=== PATIENT | female | born 1960 | race Caucasian/White ===

== ENCOUNTER 2025-02-10 09:35 | Outpatient (AMB) | payer BC, SELFPAY ==
--- NOTE | 2025-02-10 10:03 | GYNCLNT_ITS ---
Vital Signs 02/10/25 10:04 Height 1.75 m Height Method Stated Weight 87.146 kg Weight Measurement Method Standing Scale BMI 28.3 BP 128/71 Blood Pressure Source Automatic Cuff Blood Pressure Location Left Upper Arm Position Sitting Respiration 18 Pulse 75 Pulse Source Monitor Temp 97.2 F Temp Source Oral Pulse Oximetry (%) 96 Oxygen Delivery Method Room Air Allergies/Home Meds Allergies & Medications Allergies No Known Allergies Allergy (Verified 02/10/25 10:06) Medication Reconciliation semaglutide 1 mg/dose (2 mg/1.5 mL) subcutaneous pen injector 2 mg subcut QWEEK 02/11/25 [History] sertraline 50 mg tablet (Zoloft) 50 mg PO QDAY 02/11/25 [History] Intake Visit Data Collection New Patient or Established: New Patient (never been to [facility]) Reason for Visit:: ANNUAL EXAM Seen by Clinical Staff ONLY (RN/MA): No Do You Feel Safe at Home: Yes Authorities Contacted: N/A PCP or OBGYN visit in last 3 months: Yes Hx Now: No Are you currently on any form of Control: No Pain Present Currently: No Pain Scale Used: Alfaro-Lutz/Numerical Pain scale:: 0 Smoking Status Smoking Status: Never smoker 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 History Menstrual regularity: irregular Monthly: No Age at menarche: 14 Menopausal: Yes If menopausal, at what age did it occur: 51 Currently sexually active: No If not currently sexually active, have you ever been sexually active: Yes Additional comments: 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 1. Little interest or pleasure in doing things: not at all 2. Feeling down, depressed, or hopeless: not at all Total score: 0 PHQ-9 3. Trouble falling or staying asleep, or sleeping too much: Not at all 4. Feeling tired or having little energy: Not at all 5. Poor appetite or overeating: Not at all 6. Feeling bad about yourself - or that you are a failure or have let yourself or your family down: Not at all 7. Trouble concentrating on things, such as reading the newspaper or watching television: Not at all 8. Moving or speaking so slowly that other people could have noticed? - Or the opposite - being so fidgety or restless that you have been moving around a lot more than usual: not at all 9. Thoughts that you would be better off or of hurting yourself in some way: Not at all Total score: 0 If you checked off any problems, how difficult have these problems made it for you to do your work, take care of things at home, or get along with other people?: not difficult at all Source: Developed by Drs. Shaq Harley, Renetta Flores, Chivo German and colleagues, with an educational mir from [employer]. Depression screen completed yes Social History Living Situation History Marital Status: Lives With: Family Housing: House Housing Other:: Patient's spouse a year ago. She has 2 daughters and 5 grandchildren Tobacco History Smoking Status: Never smoker Second Hand Smoke Exposure: No Alcohol History Alcohol Intake: Never Domestic Abuse History Do You Feel Safe at Home: Yes History of Present Illness HPI Narrative The patient is a 64-year-old -0-0-2 who presents for an annual exam. She used to see me in [place]. She did not release her records to me but did fill out a new gynecology intake form. She unfortunately lost her a year ago. She took care of him for years as he had some chronic medical conditions. Her daughter aMggie moved to [place] and has 3 children age 13, 9 and 2. Her daughter Yesy is undergoing a divorce and lives with her currently. Yesy has a 5 and a 1-year-old. The patient is still grieving the loss of her and readjusting to life without him. She has no gynecological complaints today specifically no hot flashes ,no night sweats, no urinary complaints ,no postmenopausal bleeding. She is retired. She is due for a mammogram. Gynecologic pain symptoms: Reports none Menopause concerns/symptoms: Reports none Other pertinent information: Patient went through menopause in her early 50s. No menopausal complaints no hormone replacement therapy. She is currently not sexually active as she lost her spouse. Exam General Limitations: no limitations General Appearance: alert, in no apparent distress, comfortable, cooperative, healthy appearing and well groomed Neck Neck exam: Present normal inspection, full ROM and trachea midline Chest Chest inspection: Present normal inspection and symmetric chest wall rise Exp Chest Breast: bilateral: other (Normal breast exam bilaterally) Resp Respiratory exam: Present normal lung sounds bilaterally Card Cardiovascular exam: Present regular rate, normal rhythm and normal heart sounds Abdominal Abdominal exam: Present soft and normal bowel sounds External exam: Present normal external exam (Some decreased estrogen present) Speculum exam: Present normal speculum exam (Atrophic vaginitis noted) Bimanual exam: Present normal bimanual exam (Uterus anteverted nontender) Extremities Extremities exam: Present normal inspection and full ROM Psych Psychiatric exam: Present normal affect and normal mood Skin Skin exam: Present warm, dry, intact and normal color Office Procedures OB Clinic LOC & Office Proc's Nursing/Assessment Patient Status: Initial/New Patient OB Clinic Nursing Assessment: Medication Reconciliation, Update PMH in EMR and Vital Signs OB Clinic Coordination of Care: Education Complex Pt/Fam, Consent,records obtained, informed consent, Lab and Imaging orders, Results/Orders obtained and Staff clarify orders Miscellaneous Interventions: Breast Exam and Pelvic/Pap Smear Set up New Patient Charge New Patient Point Assignment: 1134 New Patient 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 Dr. Berman at [facility] [place] is her primary care and will check all lab work and will perform colon screening. Patient will follow-up in 1 to 2 years as needed. Additional Plan Follow Up: 1 Year WATER RESOURCES ENGINEER: Papsmear Pap Smear Procedure [place]arone in room during procedure?: No Pre-op diagnosis general: Annual wellness exam Post-op diagnosis procedure note: Same Procedure Notes:: Pap with cotesting to HPV performed Papsmear completed: yes
[2025-02-10 10:04] VITALS: BP 128/71; PULSE 75; RESP 18; TEMP 36.2; O2SAT 96; BMI 28.3
== END 2025-02-10 11:21 | disposition home or self-care (01) ==
PROVIDERS: PCP Family Medicine; Referring Provider Family Medicine; Supervising Provider Obstetrics & Gynecology; Visit Provider Obstetrics & Gynecology
DX: Z01.411 Encounter for gynecological examination (general) (routine) with abnormal findings (principal); N95.2 Postmenopausal atrophic vaginitis; E11.9 Type 2 diabetes mellitus without complications; Z98.84 Bariatric surgery status
CPT/HCPCS: 99204; G0463